=== PATIENT | female | born 2000 | race Caucasian/White ===

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

== ENCOUNTER 2021-03-31 11:45 | Outpatient (CLI) | payer SELFPAY ==
--- NOTE | ~2021-03-31 | XR_ITS ---
EXAMINATION: XR chest 2V DATE: 03/31/2021 12:16 INDICATION: Family history of ischemic heart disease and other diseases. TECHNIQUE: Frontal and lateral views of the chest were obtained. COMPARISON: Chest 2 views 11/21/15 FINDINGS: The chest demonstrates clear lungs without pneumonia, pleural effusion, or pneumothorax. Th e heart size is normal. IMPRESSION: 1. No acute cardiopulmonary disease. Reviewed, dictated and finalized at location B. [employer]
--- NOTE | 2021-03-31 12:13 | ECG_ITS ---
Measurements Intervals [place] Rate: 65 P: 62 SC: 150 QRS: 37 QRSD: 94 T: 23 QT: 370 QTc: 385 Interpretive Statements SINUS RHYTHM INCOMPLETE RIGHT BUNDLE BRANCH BLOCK BASELINE WANDER- I, II BORDERLINE ECG Electronically Signed On 03-31-2021 12:46:26 PROFILE TRIMMER by Ranjit Ybarra D.O.
== END 2021-03-31 11:46 | disposition home or self-care (01) ==
PROVIDERS: PCP Pediatrics; Visit Provider Pediatrics
DX: Z82.49 Family history of ischemic heart disease and other diseases of the circulatory system (principal); I45.10 Unspecified right bundle-branch block
CPT/HCPCS: 71046; 93005